=== PATIENT | female | born 1960 | race Asian ===

== ENCOUNTER 2022-10-25 11:37 | Emergency (ER) | payer OTHER ==
[2022-10-25 11:52] VITALS: TEMP 98.5
--- NOTE | 2022-10-25 12:36 | ED ---
General Adult HPI - General Chief complaint: Recheck/Abnormal Lab/Rx Stated complaint: hypertension Time Seen by Provider: 10/25/22 12:21 Source: patient, family (son terri and ) Mode of arrival: ambulatory Limitations: no limitations - History of Present Illness Initial comments: Patient presents with and son-in-law complaints of dizziness at night and headache in the morning for the past several days. Patient states that she's been monitoring her blood pressure and thought it was elevated. She is here visiting from the [facility]. Does have a history of hypertension and currently taking amlodipine 10 mg daily. Denies any chest pain or difficulty in breathing. Denies any dizziness or headache at this time. Patient states that headache does not last long in the morning and resolves on its own. She states the symptoms started in June when they changed her to 10 mg once a day rather than 5 mg twice a day. Breast cancer history 10 years ago. No other medical history. Nonsmoker -: month(s) (4) Severity scale (1-10): 0 Associated Symptoms: denies other symptoms Treatments Prior to Arrival: other (Amlodipine) - Related Data Home Medications Medication Instructions Recorded Confirmed Rosuvastatin Calcium 20 mg PO DAILY 10/25/22 10/25/22 Previous Rx's Medication Instructions Recorded amLODIPine [Norvasc] 5 mg PO BID 30 Days #60 tab 10/25/22 Allergies Allergy/AdvReac Type Severity Reaction Status Date / Time No Known Allergies Allergy Verified 10/25/22 13:56 Review of Systems ROS Statement: Those systems with pertinent positive or pertinent negative responses have been documented in the HPI. ROS Other: All systems not noted in ROS Statement are negative. Past Medical History Past Medical History: Hypertension Additional Past Medical History / Comment(s): [place] [facility] History of Any Multi-Drug Resistant Organisms: None Reported Past Surgical History: Breast Surgery Past Psychological History: No Psychological Hx Reported Smoking Status: Never smoker Past Alcohol Use History: None Reported Past Drug Use History: None Reported General Exam Limitations: no limitations General appearance: alert, in no apparent distress Head exam: Present: atraumatic Eye exam: Absent: scleral icterus, conjunctival injection, periorbital swelling Respiratory exam: Present: normal lung sounds bilaterally. Absent: respiratory distress, wheezes, rales, rhonchi, stridor, chest wall tenderness, accessory muscle use Cardiovascular Exam: Present: regular rate GI/Abdominal exam: Present: soft. Absent: distended, tenderness, rigid Neurological exam: Present: alert, oriented X3 Psychiatric exam: Present: normal affect, normal mood Skin exam: Present: warm, dry, normal color. Absent: cyanosis, diaphoretic, petechiae, pallor Course Vital Signs 10/25/22 10/25/22 11:49 14:10 Temperature 98.5 F Pulse Rate 77 78 Respiratory 20 18 Rate Blood Pressure 167/74 148/76 O2 Sat by Pulse 98 98 Oximetry EKG Findings - EKG Results: EKG: sinus rhythm (Ventricular rate 66, IA interval 0.167, QRS 0.75, QTC 0.425; normal axis) Medical Decision Making - Medical Decision Making EKG interpreted by me shows sinus rhythm with normal intervals and normal axis. No old EKG to compare. CBC and electrolytes are unremarkable. Patient has no discomfort at this time. She believes that her symptoms started after doctor changed her to Novasc 10 mg once a day instead of 5 mg twice a day. Patient was written a prescription for the Norvasc 5 mg to be taken twice a day and follow-up with her primary care doctor she is agreeable to this plan of care. Case discussed with Dr. Larry - Lab Data Result diagrams: 10/25/22 12:37 10/25/22 12:37 Lab Results 10/25/22 10/25/22 Range/Units 12:37 12:37 WBC 6.0 (3.8-10.6) k/uL RBC 4.73 (3.80-5.40) m/uL Hgb 14.4 (11.4-16.0) gm/dL Hct 41.3 (34.0-46.0) % MCV 87.4 (80.0-100.0) fL MCH 30.4 (25.0-35.0) pg MCHC 34.8 (31.0-37.0) g/dL RDW 12.1 (11.5-15.5) % Plt Count 235 (150-450) k/uL MPV 7.9 Neutrophils % 54 % Lymphocytes % 35 % Monocytes % 5 % Eosinophils % 2 % Basophils % 1 % Neutrophils # 3.3 (1.3-7.7) k/uL Lymphocytes # 2.1 (1.0-4.8) k/uL Monocytes # 0.3 (0-1.0) k/uL Eosinophils # 0.1 (0-0.7) k/uL Basophils # 0.1 (0-0.2) k/uL Sodium 144 (137-145) mmol/L Potassium 3.5 (3.5-5.1) mmol/L Chloride 106 (98-107) mmol/L Carbon Dioxide 30 (22-30) mmol/L Anion Gap 8 mmol/L BUN 15 (7-17) mg/dL Creatinine 0.62 (0.52-1.04) mg/dL Est GFR (CKD-EPI)AfAm >90 (>60 ml/min/1.73 sqM) Est GFR (CKD-EPI)NonAf >90 (>60 ml/min/1.73 sqM) Glucose 121 H (74-99) mg/dL Calcium 9.0 (8.4-10.2) mg/dL Total Bilirubin 0.5 (0.2-1.3) mg/dL AST 34 (14-36) U/L ALT 22 (4-34) U/L Alkaline Phosphatase 64 (38-126) U/L Total Protein 8.4 H (6.3-8.2) g/dL Albumin 4.5 (3.5-5.0) g/dL Disposition Clinical Impression: Hypertension Disposition: HOME SELF-CARE Condition: Good Instructions (If sedation given, give patient instructions): Hypertension (ED) Additional Instructions: Stop taking the Norvasc 10 mg once a day and take 5 mg in the morning and 5 mg in the evening instead. Follow-up with your primary care doctor. Return to the emergency room with any new or concerning symptoms. Prescriptions: amLODIPine [Norvasc] 5 mg PO BID 30 Days #60 tab Is patient prescribed a controlled substance at d/c from ED?: No Referrals: None,Stated [Primary Care Provider] - 1-2 days Time of Disposition: 13:59
[2022-10-25 13:25] LABS: Basophils # (A) 0.1 k/uL (0-0.2); Basophils % (A) 1 %; Eosinophils # (A) 0.1 k/uL (0-0.7); Eosinophils % (A) 2 %; HCT 41.3 % (34.0-46.0); HGB 14.4 gm/dL (11.4-16.0); Lymphocytes # (A) 2.1 k/uL (1.0-4.8); Lymphocytes % (A) 35 %; MCH 30.4 pg (25.0-35.0); MCHC 34.8 g/dL (31.0-37.0); MCV 87.4 fL (80.0-100.0); Mean Platelet Volume 7.9; Monocytes # (A) 0.3 k/uL (0-1.0); Monocytes % (A) 5 %; Neutrophils # (A) 3.3 k/uL (1.3-7.7); Neutrophils % (A) 54 %; Platelet Count 235 k/uL (150-450); RBC 4.73 m/uL (3.80-5.40); RDW 12.1 % (11.5-15.5)
[2022-10-25 13:49] LABS: ALT 22 U/L (4-34); AST 34 U/L (14-36); African American GFR (CKD) >90 (>60 ml/min/1.73 sqM); Albumin 4.5 g/dL (3.5-5.0); Alkaline Phosphatase 64 U/L (38-126); Anion Gap 8 mmol/L; Blood Urea Nitrogen 15 mg/dL (7-17); Carbon Dioxide 30 mmol/L (22-30); Chloride 106 mmol/L (98-107); Glucose 121 mg/dL (74-99); Non-African American GFR(CKD) >90 (>60 ml/min/1.73 sqM); Potassium 3.5 mmol/L (3.5-5.1); Sodium 144 mmol/L (137-145); Total Bilirubin 0.5 mg/dL (0.2-1.3); Total Protein 8.4 g/dL (6.3-8.2)
[2022-10-25 15:44] VITALS: BP 148/76; PULSE 78; RESP 18
== END 2022-10-25 14:10 | disposition home or self-care (01) ==
LOC: EC 11:37
DX: I10 Essential (primary) hypertension (principal)
CPT/HCPCS: 36415; 80053; 85025; 93005; 99283